=== PATIENT | female | born 1995 | race Caucasian/White ===

== ENCOUNTER 2018-11-25 21:23 | Emergency (ER) | payer BC ==
[2018-11-25] MEDS ORDERED: ONDANSETRON HCL INJ/PF 4 MG/2 ML SDV IV ONE (23:44)
[2018-11-25] MEDS ORDERED: NORMAL SALINE 1000 ML 1,000 ML IV ONE (23:44)
--- NOTE | 2018-11-25 23:46 | ER Document Report ---
ED Medical Screen (RME) - General Chief Complaint: Diarrhea Stated Complaint: DIARRHEA,NAUSEA Time Seen by Provider: 11/25/18 23:44 Notes: Patient is an otherwise healthy 23-year-old female presents to the emergency department for generalized or diarrhea for the last 4 days. Patient states she has had 8 watery bowel movement every 5 minutes for the last 2 days and is denying any blood. Patient also states she feels nauseated. Patient states she does have generalized abdominal pain complaining it starting in her periumbilical region. Past medical history: None Medications: None Allergies: None Surgical history: None Last menstrual period October 28, 2018 Physical exam: Obese, generalized abdominal pain periumbilical region. No McBurney's point tenderness, no Engel sign. No CVA tenderness bilaterally. I have greeted and performed a rapid initial assessment of this patient. A comprehensive ED assessment and evaluation of the patient, analysis of test results and completion of the medical decision making process will be conducted by additional ED providers. TRAVEL OUTSIDE OF THE [place] IN LAST 30 DAYS: No - Related Data Allergies/Adverse Reactions: No Known Allergies Allergy (Unverified 11/25/18 21:27) Physical Exam - Vital signs Vitals: Temp Pulse Resp BP Pulse Ox 98.0 F 124 H 20 131/84 H 98 11/25/18 21:28 11/25/18 21:28 11/25/18 21:28 11/25/18 21:28 11/25/18 21:28 Course - Vital Signs Vital signs: Temp Pulse Resp BP Pulse Ox 98.0 F 124 H 20 131/84 H 98 11/25/18 21:28 11/25/18 21:28 11/25/18 21:28 11/25/18 21:28 11/25/18 21:28
[2018-11-26 00:44] LABS: HEMATOCRIT 43.4 % (36.0-47.0); HEMOGLOBIN 14.4 g/dL (12.0-15.5); MEAN CORPUSCULAR HEMOGLOBIN 26.6 pg (27.0-33.4); MEAN CORPUSCULAR HGB CONC 33.1 g/dL (32.0-36.0); MEAN CORPUSCULAR VOLUME 80 fl (80-97); PLATELET COUNT 439 10^3/uL (150-450); RED CELL DISTRIBUTION WIDTH 14.7 % (11.5-14.0); WHITE BLOOD COUNT 21.9 10^3/uL (4.0-10.5)
[2018-11-26 00:52] LABS: ALANINE AMINOTRANSFERASE 23 U/L (9-52); ALKALINE PHOSPHATASE 90 U/L (38-126); ANION GAP 14 (5-19); ASPARTATE AMINO TRANSFERASE 30 U/L (14-36); BILIRUBIN,DIRECT 0.3 mg/dL (0.0-0.4); BILIRUBIN,TOTAL 0.7 mg/dL (0.2-1.3); BLOOD UREA NITROGEN 16 mg/dL (7-20); CALCIUM 10.3 mg/dL (8.4-10.2); CARBON DIOXIDE 16 mmol/L (22-30); CHLORIDE 110 mmol/L (98-107); GLUCOSE 132 mg/dL (75-110); POTASSIUM 3.7 mmol/L (3.6-5.0); SODIUM 139.9 mmol/L (137-145); TOTAL PROTEIN 9.2 g/dL (6.3-8.2)
--- NOTE | 2018-11-26 00:52 | ER Document Report ---
ED GI/ - General Chief Complaint: Diarrhea Stated Complaint: DIARRHEA,NAUSEA Time Seen by Provider: 11/25/18 23:44 Notes: Patient is a 23-year-old female that comes to the emergency department for chief complaint of persistent diarrhea for the past 4 days. She states that 2 days ago she had vomiting but this resolved. She states that she has not had any blood in her stool, she has not had fevers, however she felt like she was getting more dehydrated today. She is able to eat/drink minimally, she has reduced this to avoid diarrhea. She denies recent travel, recent antibiotics, raw food. She states her child and both had one day of similar symptoms but they resolved and she has persistent symptoms. She denies any surgeries, daily medications, or medical history. TRAVEL OUTSIDE OF THE [place] IN LAST 30 DAYS: No - Related Data Allergies/Adverse Reactions: No Known Allergies Allergy (Unverified 11/25/18 21:27) Past Medical History - General Information source: Patient - Social History Smoking Status: Never Smoker Frequency of alcohol use: None Drug Abuse: None Lives with: Family Family History: Reviewed & Not Pertinent - Medical History Medical History: Negative Surgical Hx: Negative - Immunizations Immunizations up to date: Yes Hx Diphtheria, Pertussis, Tetanus Vaccination: Yes Review of Systems - Review of Systems Constitutional: No symptoms reported EENT: No symptoms reported Cardiovascular: No symptoms reported Respiratory: No symptoms reported Gastrointestinal: See HPI Genitourinary: No symptoms reported Female Genitourinary: No symptoms reported Musculoskeletal: No symptoms reported Skin: No symptoms reported Hematologic/Lymphatic: No symptoms reported Neurological/Psychological: No symptoms reported Physical Exam - Vital signs Vitals: Temp Pulse Resp BP Pulse Ox 98.0 F 124 H 20 131/84 H 98 11/25/18 21:28 11/25/18 21:28 11/25/18 21:28 11/25/18 21:28 11/25/18 21:28 - Notes Notes: GENERAL: Alert, interacts well. No acute distress. HEAD: Normocephalic, atraumatic. EYES: Pupils equal, round, and reactive to light. Extraocular movements intact. ENT: Oral mucosa very dry, tongue midline. Oropharynx unremarkable. Airway patent. Nares patent, no nasal septal hematoma, TM's intact. NECK: Full range of motion. Supple. Trachea midline. LUNGS: Clear to auscultation bilaterally, no wheezes, rales, or rhonchi. No respiratory distress. HEART: Tachycardic, normal rhythm. No murmur ABDOMEN: Soft benign abdomen with very minimal tenderness generally. No distention. Hyperactive bowel sounds. GENITOURINARY: Deferred EXTREMITIES: Moves all 4 extremities spontaneously. No edema, normal radial and dorsalis pedis pulses bilaterally. No cyanosis. BACK: no cervical, thoracic, lumbar midline tenderness. No saddle anesthesia, normal distal neurovascular exam. NEUROLOGICAL: Alert and oriented x3. Normal speech. [cranial nerves II through XII grossly intact]. PSYCH: Normal affect, normal mood. SKIN: Warm, dry, normal turgor. No rashes or lesions noted. Course - Re-evaluation Re-evalutation: Patient appears very dehydrated on initial examination. Part speaks membranes, tachycardia. Her abdominal exam is extremely benign however. Very minimal generalized tenderness. She is not complaining of any current abdominal pain. After IV hydration, tachycardia resolved. Patient states she feels much better. She tolerated p.o. without any difficulty. CBC shows leukocytosis at 21,000 consistent with multiple days of persistent diarrhea and dehydration. Bicarbonate is low. Urinalysis unremarkable. test negative. C. difficile is negative, moderate white blood cells in the stool. Clinical picture suggestive of inflammatory diarrhea. Possibly colitis. I do not suspect an abscess based on her well appearance and her abdominal exam. I discussed possibilities, results, options with patient and significant other. After discussion decision was made to treat her with antibiotics for suspected inflammatory diarrhea versus colitis, provide her with nausea medication, pending stool culture. Discussed return precautions. Patient and significant other state understanding and agreement. - Vital Signs Vital signs: Temp Pulse Resp BP Pulse Ox 97.4 F 92 18 126/74 H 98 11/26/18 03:42 11/26/18 03:42 11/26/18 03:42 11/26/18 03:42 11/26/18 03:42 - Laboratory Result Diagrams: 11/26/18 00:17 11/26/18 00:17 Laboratory results interpreted by me: 11/26/18 11/26/18 11/26/18 00:17 00:17 01:11 WBC 21.9 H RBC 5.40 H MCH 26.6 L RDW 14.7 H Seg Neuts % (Manual) 81 H Lymphocytes % (Manual) 11 L Abs Neuts (Manual) 17.7 H Chloride 110 H Carbon Dioxide 16 L Glucose 132 H Calcium 10.3 H Total Protein 9.2 H Urine Protein 100 H Urine Bilirubin SMALL H Urine Urobilinogen 2.0 H Stool for White Cells 11/26/18 01:11 WBC RBC MCH RDW Seg Neuts % (Manual) Lymphocytes % (Manual) Abs Neuts (Manual) Chloride Carbon Dioxide Glucose Calcium Total Protein Urine Protein Urine Bilirubin Urine Urobilinogen Stool for White Cells MODERATE H Discharge - Discharge Clinical Impression: Dehydration Diarrhea Qualifiers: Diarrhea type: infectious Qualified Code(s): A09 - Infectious gastroenteritis and colitis, unspecified Abdominal pain Qualifiers: Abdominal location: generalized Qualified Code(s): R10.84 - Generalized abdominal pain Condition: Stable Disposition: HOME, SELF-CARE Additional Instructions: Your workup does indicate inflammatory diarrhea or colitis. We have begun treatment for this. Take as prescribed to completion. We have a stool culture growing in our lab. Drink plenty of fluids, start with bland food, slowly progress. Follow-up closely with primary care. Return if you worsen including high fevers, bloody diarrhea, severe abdominal pain, or any other concerning or worsening symptoms. Prescriptions: Ciprofloxacin HCl [Cipro 500 mg Tablet] 500 mg PO BID #14 tablet Metronidazole [Flagyl 500 mg Tablet] 500 mg PO TID #21 tablet Promethazine HCl [Phenergan 25 mg Tablet] 25 mg PO Q6H PRN #20 tablet PRN Reason:
[2018-11-26 01:07] LABS: ABSOLUTE LYMPHOCYTES# (MANUAL) 2.6 10^3/uL (0.5-4.7); ABSOLUTE MONOCYTES # (MANUAL) 1.3 10^3/uL (0.1-1.4); ABSOLUTE NEUTROPHILS# (MANUAL) 17.7 10^3/uL (1.7-8.2); BASOPHILS % (MANUAL) 1 % (0-2); EOSINOPHILS % (MANUAL) 0 % (0-6); LYMPHOCYTES % (MANUAL) 11 % (13-45); MONOCYTES % (MANUAL) 6 % (3-13); SEGMENTED NEUTROPHILS % (MAN) 81 % (42-78); TOTAL CELLS COUNTED 100
[2018-11-26 01:17] LABS: ANISOCYTOSIS SLIGHT; OVALOCYTES 1+; PLATELET COMMENT ADEQUATE; POIKILOCYTOSIS 1+; STOMATOCYTES 2+; TEAR DROP CELLS SLIGHT; TOXIC GRANULATION 1+; TOXIC VACUOLATION PRESENT
[2018-11-26 01:43] LABS: APPEARANCE,URINE CLOUDY; BILIRUBIN,URINE SMALL (NEGATIVE); COLOR,URINE AMBER; GLUCOSE, URINE NEGATIVE (NEGATIVE); KETONES,URINE NEGATIVE (NEGATIVE); LEUKOCYTE ESTERASE,URINE NEGATIVE (NEGATIVE); NITRITE,URINE NEGATIVE (NEGATIVE); PROTEIN,URINE 100 mg/dL (NEGATIVE); URINE SPECIFIC GRAVITY 1.028
[2018-11-26] MEDS ORDERED: OXYCODONE-ACETAMINOPHEN 5-325 MG TABLET PO ONE (02:13)
[2018-11-26] MEDS ORDERED: NORMAL SALINE 1000 ML 1,000 ML IV ONE (02:13)
[2018-11-26] MEDS ORDERED: METRONIDAZOLE 500 MG TABLET PO ONE (02:30)
[2018-11-26] MEDS ORDERED: CIPROFLOXACIN HCL 500 MG TABLET PO ONE (02:30)
[2018-11-26 04:18] VITALS: BP 126/74
== END 2018-11-26 03:45 | disposition home or self-care (01) ==
LOC: ER 21:23
DX: A09 Infectious gastroenteritis and colitis, unspecified (principal); E86.0 Dehydration; R00.0 Tachycardia, unspecified
CPT/HCPCS: 99284; 96361; 96374; 36415; 87045; 89055; 87205; 85025; 81025; 80053; 81001; 87493; J2405; J7030

== ENCOUNTER → 2020-11-26 | Outpatient (CLI) | payer OTHER ==
[2020-11-26 15:15] LABS: ABSOLUTE BASOPHILS # (AUTO) 0.1 10^3/uL (0.0-0.2); ABSOLUTE EOSINOPHILS # (AUTO) 0.1 10^3/uL (0.0-0.6); ABSOLUTE LYMPHOCYTES (AUTO) 2.5 10^3/uL (0.5-4.7); ABSOLUTE MONOCYTES (AUTO) 0.4 10^3/uL (0.1-1.4); ABSOLUTE NEUT (AUTO) 4.3 10^3/uL (1.7-8.2); BASOPHILS % (AUTO) 0.7 % (0-2); EOSINOPHILS % (AUTO) 1.9 % (0-6); HEMATOCRIT 37.4 % (36.0-47.0); HEMOGLOBIN 12.3 g/dL (12.0-15.5); LYMPHOCYTES % (AUTO) 33.9 % (13-45); MEAN CORPUSCULAR HEMOGLOBIN 25.8 pg (27.0-33.4); MEAN CORPUSCULAR VOLUME 78 fl (80-97); PLATELET COUNT 287 10^3/uL (150-450); RED BLOOD COUNT 4.78 10^6/uL (3.72-5.28); RED CELL DISTRIBUTION WIDTH 15.1 % (11.5-14.0); SEGMENTED NEUTROPHILS % (AUTO) 58.5 % (42-78); TOTAL CELLS COUNTED % (AUTO) 100 %; WHITE BLOOD COUNT 7.4 10^3/uL (4.0-10.5)
[2020-11-26 15:32] LABS: URINE AMPHETAMINES SCREEN NEGATIVE; URINE BARBITURATES SCREEN NEGATIVE; URINE BENZODIAZEPINES SCREEN NEGATIVE; URINE COCAINE SCREEN NEGATIVE; URINE MARIJUANA (THC) SCREEN NEGATIVE; URINE METHADONE SCREEN NEGATIVE; URINE PHENCYCLIDINE SCREEN NEGATIVE
[2020-11-26 15:39] LABS: ALBUMIN 4.3 g/dL (3.5-5.0); ALKALINE PHOSPHATASE 61 U/L (38-126); ANION GAP 8 (5-19); ASPARTATE AMINO TRANSFERASE 17 U/L (14-36); BILIRUBIN,DIRECT 0.2 mg/dL (0.0-0.4); BILIRUBIN,TOTAL 0.5 mg/dL (0.2-1.3); BLOOD UREA NITROGEN 10 mg/dL (7-20); CALCIUM 9.6 mg/dL (8.4-10.2); CARBON DIOXIDE 26 mmol/L (22-30); CHLORIDE 105 mmol/L (98-107); CHOLESTEROL 186.36 mg/dL (0-200); GLUCOSE 89 mg/dL (75-110); TOTAL PROTEIN 7.3 g/dL (6.3-8.2); TRIGLYCERIDES 124 mg/dL (<150)
[2020-11-26 15:51] LABS: DIRECT LDL 121 mg/dL (<100)
[2020-11-26 15:58] LABS: FREE T4 (FREE THYROXINE) 0.99 ng/dL (0.78-2.19)
[2020-11-26 16:12] LABS: THYROID STIMULATING HORMONE 1.37 uIU/mL (0.47-4.68)
== END ==
LOC: OD 14:16
PROVIDERS: ATTEND Nurse Practitioner Psychiatric/Mental Health
DX: F41.1 Generalized anxiety disorder (principal); F31.9 Bipolar disorder, unspecified; Z79.899 Other long term (current) drug therapy
CPT/HCPCS: 36415; 80053; 80061; 80307; 82306; 82607; 82746; 83036; 84439; 84443; 84702; 85025